=== PATIENT | female | born 1935 | race Caucasian/White ===

== ENCOUNTER 2021-11-02 10:44 | Emergency (ER) | payer BC ==
[2021-11-02 10:50] VITALS: BMI 34.7
[2021-11-02] MEDS ORDERED: SOTROVIMAB 500 MG in SODIUM CHLORIDE 100 ML IVPB ONE (12:38)
[2021-11-02 15:55] VITALS: BP 177/66; PULSE 88; TEMP 98
== END 2021-11-02 15:55 | disposition home or self-care (01) ==
LOC: JER 10:44
DX: U07.1 COVID-19 (principal)
CPT/HCPCS: 99284-25; M0247; Q0247

== ENCOUNTER 2022-07-21 04:58 | Observation (INO) | payer BC ==
[2022-07-21 05:05] VITALS: BMI 30.9
[2022-07-21 06:47] LABS: BASO % 0.7 % (0-2.0); EOS % 1.1 % (0-4.5); HEMATOCRIT 43.5 % (32.4-45.2); HEMOGLOBIN 14.2 GM/dL (10.7-15.3); LYMPH % 16.7 % (8-40); MCH 28.1 pg (25.7-33.7); MCHC 32.6 g/dl (32.0-36.0); MEAN CELL VOLUME 86.1 fl (80-96); MEAN PLT VOLUME 9.6 fl (7.5-11.1); MONO % 8.8 % (3.8-10.2); NEUT % 72.7 % (42.8-82.8); PLATELET COUNT 266 10^3/uL (134-434); RBC 5.05 M/mm3 (3.60-5.2); RDW 14.6 % (11.6-15.6); WHITE BLOOD COUNT 7.9 K/mm3 (4.0-10.0)
[2022-07-21 06:53] LABS: INR 1.26 (0.83-1.09); PROTHROMBIN TIME (PATIENT) 14.5 SEC (9.7-13.0)
[2022-07-21 06:56] LABS: ACTIVATED PTT 30.1 SECONDS (25.2-36.5)
[2022-07-21 07:08] LABS: CALCIUM 8.7 mg/dL (8.5-10.1)
[2022-07-21 07:09] LABS: ALBUMIN 3.5 g/dl (3.4-5.0); BLOOD UREA NITROGEN 36.5 mg/dL (7-18)
[2022-07-21 07:11] LABS: CREATININE 1.1 mg/dL (0.55-1.3); PHOSPHOROUS 3.9 mg/dL (2.5-4.9)
[2022-07-21 07:13] LABS: BILIRUBIN,TOTAL 0.8 mg/dL (0.2-1); TOT PROT 6.4 g/dl (6.4-8.2)
[2022-07-21] MEDS ORDERED: FUROSEMIDE 40 MG/4 ML INJECTABLE VIAL IVPUSH ONE (08:34)
[2022-07-21] MEDS ORDERED: FUROSEMIDE 40 MG/4 ML INJECTABLE VIAL ONE (09:42)
[2022-07-21] MEDS ORDERED: ENOXAPARIN NA (PORCINE) 40 MG/0.4 ML DISP.SYRIN SQ SCH (10:00)
[2022-07-21] MEDS ORDERED: PATIENT'S OWN MEDICATION (NON-FORMULARY) (Spironolact/Hydrochlorothiazid [Spironolactone-H PO SCH (10:00)
[2022-07-21] MEDS ORDERED: ALBUTEROL SO4 2.5/IPRATROPIUM 0.5 INH SOL 3 ML VIAL.NEB. NEB ONE (10:39)
[2022-07-21] MEDS ORDERED: HYDROCHLOROTHIAZIDE 25 MG TABLET (FP) PO SCH (11:00)
[2022-07-21 11:16] LABS: EPI CELLS 8 /uL (0-25.1); HYALINE CASTS 0 /uL (0-3.1); PH,URINE 5.5 (5.0-8.0); URINE APPEARANCE CLEAR; URINE BACTERIA 31 /uL (0-1359); URINE BILIRUBIN NEGATIVE (NEGATIVE); URINE COLOR YELLOW; URINE GLUCOSE (UA) NEGATIVE (NEGATIVE); URINE KETONE NEGATIVE (NEGATIVE); URINE LEUK ESTERASE NEGATIVE (NEGATIVE); URINE NITRITE NEGATIVE (NEGATIVE); URINE PROTEIN 2+ (NEGATIVE); URINE RBC 13 /uL (0-23.9); URINE UROBILINOGEN 0.2 mg/dL (0.2-1.0); URINE WBC 29 /uL (0-25.8)
[2022-07-21] MEDS ORDERED: ATORVASTATIN CA 10 MG TABLET (FP) ONE (11:48)
[2022-07-21] MEDS ORDERED: HYDROCHLOROTHIAZIDE 25 MG TABLET (FP) ONE (11:48)
[2022-07-21] MEDS ORDERED: SERTRALINE HCL 50 MG TABLET (FP) ONE (11:49)
[2022-07-21] MEDS ORDERED: SPIRONOLACTONE 25 MG TABLET ONE (11:49)
[2022-07-21] MEDS ORDERED: VALSARTAN 80 MG TABLET ONE (11:49)
[2022-07-21] MEDS: SPIRONOLACTONE 25 MG TABLET PO SCH (11:52)
[2022-07-21] MEDS: ATORVASTATIN CA 10 MG TABLET (FP) PO SCH (11:53)
[2022-07-21] MEDS: SERTRALINE HCL 50 MG TABLET (FP) PO SCH (11:54)
[2022-07-21] MEDS ORDERED: APIXABAN 5 MG TABLET ONE ×2 (11:57→23:10)
[2022-07-21] MEDS: APIXABAN 5 MG TABLET PO SCH ×2 (12:23→23:13)
[2022-07-21] MEDS: VALSARTAN 160 MG TABLET PO SCH (12:32)
[2022-07-21] MEDS: EZETIMIBE 10 MG TABLET (FP) PO SCH (12:32)
[2022-07-21] MEDS ORDERED: INSULIN (NOVOLOG) ASPART 100 UNITS/ML 10ML VIAL ONE (12:54)
[2022-07-21] MEDS: INSULIN SLIDING SCALE (NOVOLOG) 1 VIAL SQ SCH ×3 (12:58→23:17)
[2022-07-22] MEDS: INSULIN SLIDING SCALE (NOVOLOG) 1 VIAL SQ SCH ×4 (06:45→22:11)
[2022-07-22 07:30] LABS: HEMATOCRIT 42.1 % (32.4-45.2); HEMOGLOBIN 13.5 GM/dL (10.7-15.3); MCH 27.7 pg (25.7-33.7); MEAN CELL VOLUME 86.8 fl (80-96); PLATELET COUNT 221 10^3/uL (134-434); RBC 4.85 M/mm3 (3.60-5.2); RDW 14.6 % (11.6-15.6); WHITE BLOOD COUNT 7.4 K/mm3 (4.0-10.0)
[2022-07-22 07:54] LABS: CALCIUM 8.8 mg/dL (8.5-10.1)
[2022-07-22 07:55] LABS: BLOOD UREA NITROGEN 36.9 mg/dL (7-18); MAGNESIUM 1.8 mg/dL (1.8-2.4)
[2022-07-22] MEDS: LEVOTHYROXINE NA 100 MCG TABLET (FP) PO SCH (08:00)
[2022-07-22] MEDS ORDERED: POTASSIUM CHLORIDE TABS 20 MEQ TABLET.ER (FP) PO ONE (08:53)
[2022-07-22] MEDS: VALSARTAN 160 MG TABLET PO SCH (10:04)
[2022-07-22] MEDS: APIXABAN 5 MG TABLET PO SCH ×2 (10:04→22:06)
[2022-07-22] MEDS: EZETIMIBE 10 MG TABLET (FP) PO SCH (10:04)
[2022-07-22] MEDS: ATORVASTATIN CA 10 MG TABLET (FP) PO SCH (10:04)
[2022-07-22] MEDS: SPIRONOLACTONE 25 MG TABLET PO SCH (10:05)
[2022-07-22] MEDS: FUROSEMIDE 40 MG/4 ML INJECTABLE VIAL IVPUSH SCH (10:05)
[2022-07-22] MEDS: SERTRALINE HCL 50 MG TABLET (FP) PO SCH (10:05)
[2022-07-23] MEDS: LEVOTHYROXINE NA 100 MCG TABLET (FP) PO SCH (06:57)
[2022-07-23] MEDS: INSULIN SLIDING SCALE (NOVOLOG) 1 VIAL SQ SCH ×2 (06:57→12:09)
[2022-07-23 08:04] LABS: HEMATOCRIT 43.2 % (32.4-45.2); HEMOGLOBIN 13.8 GM/dL (10.7-15.3); MCH 27.7 pg (25.7-33.7); MCHC 31.9 g/dl (32.0-36.0); MEAN CELL VOLUME 86.9 fl (80-96); PLATELET COUNT 212 10^3/uL (134-434); RBC 4.97 M/mm3 (3.60-5.2); RDW 14.3 % (11.6-15.6)
[2022-07-23 08:26] LABS: CALCIUM 8.7 mg/dL (8.5-10.1)
[2022-07-23 08:27] LABS: ALBUMIN 3.4 g/dl (3.4-5.0)
[2022-07-23 08:30] LABS: BLOOD UREA NITROGEN 36.2 mg/dL (7-18); PHOSPHOROUS 4.4 mg/dL (2.5-4.9)
[2022-07-23] MEDS ORDERED: POTASSIUM CHLORIDE TABS 20 MEQ TABLET.ER (FP) PO ONE (08:30)
[2022-07-23 08:31] LABS: BILIRUBIN,TOTAL 0.6 mg/dL (0.2-1); TOT PROT 5.6 g/dl (6.4-8.2)
[2022-07-23 10:14] VITALS: BP 130/76; PULSE 92; RESP 18; TEMP 97.4
[2022-07-23] MEDS: APIXABAN 5 MG TABLET PO SCH (10:15)
[2022-07-23] MEDS: EZETIMIBE 10 MG TABLET (FP) PO SCH (10:15)
[2022-07-23] MEDS: VALSARTAN 160 MG TABLET PO SCH (10:15)
[2022-07-23] MEDS: SPIRONOLACTONE 25 MG TABLET PO SCH (10:15)
[2022-07-23] MEDS: FUROSEMIDE 40 MG/4 ML INJECTABLE VIAL IVPUSH SCH (10:15)
[2022-07-23] MEDS: SERTRALINE HCL 50 MG TABLET (FP) PO SCH (10:16)
[2022-07-23] MEDS: ATORVASTATIN CA 10 MG TABLET (FP) PO SCH (10:17)
== END 2022-07-23 14:01 | disposition home or self-care (01) ==
LOC: JER 04:58 → JERBED 09:34 → INTOOBSV 09:34 → UNDOADMOB 09:34 → JERBED 09:36 → J4W 23:38
PROVIDERS: ADMIT Internal Medicine; ATTEND Internal Medicine
PROC: 3E033GC Introduction of Other Therapeutic Substance into Peripheral Vein, Percutaneous Approach (ICD-10-PCS; principal; 2022-07-21)
DX: J96.01 Acute respiratory failure with hypoxia (principal); I11.0 Hypertensive heart disease with heart failure; I50.9 Heart failure, unspecified; I48.0 Paroxysmal atrial fibrillation; I50.30 Unspecified diastolic (congestive) heart failure; E11.9 Type 2 diabetes mellitus without complications; R10.13 Epigastric pain; E78.5 Hyperlipidemia, unspecified
CPT/HCPCS: 0241U-QW; 36415; 71045-TC-FY; 80048; 80053; 81003; 82962; 83690; 83735; 83880; 84100; 84484; 85025; 85027; 85610; 85730; 87086; 93005; 93010; 96374; 96375; 99285-25; G0378

== ENCOUNTER 2022-08-29 12:50 | Inpatient (IN) | payer BC ==
[2022-08-29 14:58] LABS: HEMATOCRIT 45.3 % (32.4-45.2); HEMOGLOBIN 14.9 GM/dL (10.7-15.3); MCH 28.8 pg (25.7-33.7); MCHC 32.9 g/dl (32.0-36.0); MEAN CELL VOLUME 87.5 fl (80-96); MEAN PLT VOLUME 9.4 fl (7.5-11.1); PLATELET COUNT 225 10^3/uL (134-434); RBC 5.18 M/mm3 (3.60-5.2); RDW 15.7 % (11.6-15.6); WHITE BLOOD COUNT 6.4 K/mm3 (4.0-10.0)
[2022-08-29] MEDS ORDERED: FUROSEMIDE 100 MG/10 ML INJECTABLE VIAL IVPB ONE (15:04)
[2022-08-29] MEDS ORDERED: FUROSEMIDE 40 MG/4 ML INJECTABLE VIAL ONE (15:12)
[2022-08-29 15:25] LABS: CALCIUM 9.2 mg/dL (8.5-10.1)
[2022-08-29 15:26] LABS: ALBUMIN 3.6 g/dl (3.4-5.0); BLOOD UREA NITROGEN 40.2 mg/dL (7-18)
[2022-08-29 15:29] LABS: CREATININE 1.5 mg/dL (0.55-1.3)
[2022-08-29 15:31] LABS: BILIRUBIN,TOTAL 0.5 mg/dL (0.2-1); TOT PROT 6.1 g/dl (6.4-8.2)
[2022-08-29] MEDS ORDERED: APIXABAN 5 MG TABLET PO SCH (16:45)
[2022-08-29] MEDS ORDERED: ATORVASTATIN CA 10 MG TABLET (FP) ONE (22:08)
[2022-08-29] MEDS: ATORVASTATIN CA 10 MG TABLET (FP) PO SCH (22:33)
[2022-08-30] MEDS ORDERED: APIXABAN 2.5 MG TABLET ONE ×2 (01:21→10:34)
[2022-08-30] MEDS: APIXABAN 2.5 MG TABLET PO SCH ×3 (01:22→22:41)
[2022-08-30] MEDS ORDERED: LEVOTHYROXINE NA 50 MCG TABLET (FP) ONE (06:19)
[2022-08-30] MEDS: LEVOTHYROXINE NA 100 MCG TABLET (FP) PO SCH (07:02)
[2022-08-30 07:30] LABS: BASO % 0.8 % (0-2.0); EOS % 1.6 % (0-4.5); HEMATOCRIT 47.1 % (32.4-45.2); HEMOGLOBIN 15.2 GM/dL (10.7-15.3); LYMPH % 23.7 % (8-40); MCH 28.4 pg (25.7-33.7); MCHC 32.4 g/dl (32.0-36.0); MEAN CELL VOLUME 87.6 fl (80-96); MEAN PLT VOLUME 9.3 fl (7.5-11.1); MONO % 11.6 % (3.8-10.2); NEUT % 62.3 % (42.8-82.8); PLATELET COUNT 203 10^3/uL (134-434); RBC 5.38 M/mm3 (3.60-5.2); RDW 15.5 % (11.6-15.6); WHITE BLOOD COUNT 6.9 K/mm3 (4.0-10.0)
[2022-08-30 07:56] LABS: ALBUMIN 3.6 g/dl (3.4-5.0); BLOOD UREA NITROGEN 36.3 mg/dL (7-18); CALCIUM 8.5 mg/dL (8.5-10.1)
[2022-08-30 07:58] LABS: CREATININE 1.3 mg/dL (0.55-1.3)
[2022-08-30 08:00] LABS: BILIRUBIN,TOTAL 0.6 mg/dL (0.2-1); TOT PROT 5.9 g/dl (6.4-8.2)
[2022-08-30] MEDS ORDERED: FUROSEMIDE 40 MG/4 ML INJECTABLE VIAL IVPUSH ONE (08:02)
[2022-08-30] MEDS ORDERED: FUROSEMIDE 40 MG/4 ML INJECTABLE VIAL ONE ×2 (08:11→14:58)
[2022-08-30] MEDS ORDERED: NIFEdipine E.R. 90 MG TABLET PO SCH ×2 (10:00→22:00)
[2022-08-30] MEDS ORDERED: FUROSEMIDE 40 MG/4 ML INJECTABLE VIAL IVPUSH SCH ×2 (10:00→14:00)
[2022-08-30] MEDS: EZETIMIBE 10 MG TABLET (FP) PO SCH (10:30)
[2022-08-30] MEDS: VALSARTAN 160 MG TABLET PO SCH (10:30)
[2022-08-30 18:05] VITALS: BMI 34.9
[2022-08-30] MEDS ORDERED: DEXTROSE 50%-WATER - 25 GM/50 ML VIAL IVPUSH PRN (18:40)
[2022-08-30] MEDS: ATORVASTATIN CA 10 MG TABLET (FP) PO SCH (22:41)
[2022-08-30] MEDS: INSULIN SLIDING SCALE (NOVOLOG) 1 VIAL SQ SCH (22:44)
[2022-08-31] MEDS: INSULIN SLIDING SCALE (NOVOLOG) 1 VIAL SQ SCH ×4 (06:00→21:11)
[2022-08-31] MEDS: LEVOTHYROXINE NA 100 MCG TABLET (FP) PO SCH (06:00)
[2022-08-31 07:54] LABS: BASO % 0.7 % (0-2.0); EOS % 2.1 % (0-4.5); HEMATOCRIT 44.8 % (32.4-45.2); HEMOGLOBIN 14.9 GM/dL (10.7-15.3); LYMPH % 20.1 % (8-40); MCH 28.9 pg (25.7-33.7); MCHC 33.3 g/dl (32.0-36.0); MEAN CELL VOLUME 86.9 fl (80-96); MEAN PLT VOLUME 8.7 fl (7.5-11.1); MONO % 10.5 % (3.8-10.2); NEUT % 66.6 % (42.8-82.8); PLATELET COUNT 196 10^3/uL (134-434); RBC 5.16 M/mm3 (3.60-5.2); WHITE BLOOD COUNT 6.1 K/mm3 (4.0-10.0)
[2022-08-31 08:17] LABS: CALCIUM 8.5 mg/dL (8.5-10.1)
[2022-08-31 08:18] LABS: ALBUMIN 3.6 g/dl (3.4-5.0); BLOOD UREA NITROGEN 31.5 mg/dL (7-18); MAGNESIUM 2.1 mg/dL (1.8-2.4)
[2022-08-31 08:21] LABS: CREATININE 1.2 mg/dL (0.55-1.3); PHOSPHOROUS 3.9 mg/dL (2.5-4.9)
[2022-08-31 08:22] LABS: BILIRUBIN,TOTAL 0.7 mg/dL (0.2-1)
[2022-08-31 08:23] LABS: TOT PROT 5.7 g/dl (6.4-8.2)
[2022-08-31] MEDS ORDERED: POTASSIUM CHLORIDE TABS 20 MEQ TABLET.ER (FP) PO ONE (09:00)
[2022-08-31] MEDS: APIXABAN 2.5 MG TABLET PO SCH ×2 (09:57→21:04)
[2022-08-31] MEDS: EZETIMIBE 10 MG TABLET (FP) PO SCH (09:58)
[2022-08-31] MEDS: VALSARTAN 160 MG TABLET PO SCH (09:58)
[2022-08-31] MEDS ORDERED: metoPROLOL SUCCINATE 25 MG TAB.SR.24H (FP) PO ONE (13:00)
[2022-08-31] MEDS ORDERED: FUROSEMIDE 40 MG/4 ML INJECTABLE VIAL IVPUSH ONE (14:00)
[2022-08-31] MEDS: SPIRONOLACTONE 25 MG TABLET PO SCH (14:20)
[2022-08-31] MEDS: ATORVASTATIN CA 10 MG TABLET (FP) PO SCH (21:04)
[2022-09-01] MEDS: INSULIN SLIDING SCALE (NOVOLOG) 1 VIAL SQ SCH ×4 (06:16→22:17)
[2022-09-01] MEDS: LEVOTHYROXINE NA 100 MCG TABLET (FP) PO SCH (06:16)
[2022-09-01 09:07] LABS: BASO % 0.4 % (0-2.0); EOS % 1.8 % (0-4.5); HEMOGLOBIN 14.6 GM/dL (10.7-15.3); LYMPH % 16.2 % (8-40); MCH 29.3 pg (25.7-33.7); MCHC 33.8 g/dl (32.0-36.0); MEAN CELL VOLUME 86.6 fl (80-96); MEAN PLT VOLUME 8.8 fl (7.5-11.1); MONO % 10.9 % (3.8-10.2); NEUT % 70.7 % (42.8-82.8); PLATELET COUNT 195 10^3/uL (134-434); RBC 4.97 M/mm3 (3.60-5.2); RDW 15.2 % (11.6-15.6); WHITE BLOOD COUNT 6.7 K/mm3 (4.0-10.0)
[2022-09-01 09:18] LABS: ALBUMIN 3.4 g/dl (3.4-5.0); BLOOD UREA NITROGEN 27.9 mg/dL (7-18); MAGNESIUM 2.1 mg/dL (1.8-2.4)
[2022-09-01 09:21] LABS: PHOSPHOROUS 3.7 mg/dL (2.5-4.9)
[2022-09-01 09:23] LABS: BILIRUBIN,TOTAL 0.8 mg/dL (0.2-1); TOT PROT 5.5 g/dl (6.4-8.2)
[2022-09-01 09:25] LABS: CREATININE 1.1 mg/dL (0.55-1.3)
[2022-09-01] MEDS: VALSARTAN 160 MG TABLET PO SCH (10:50)
[2022-09-01] MEDS: APIXABAN 2.5 MG TABLET PO SCH (10:51)
[2022-09-01] MEDS: FUROSEMIDE 40 MG TABLET (FP) PO SCH (10:51)
[2022-09-01] MEDS: SPIRONOLACTONE 25 MG TABLET PO SCH (10:51)
[2022-09-01] MEDS: EZETIMIBE 10 MG TABLET (FP) PO SCH (10:51)
[2022-09-01] MEDS: APIXABAN 5 MG TABLET PO SCH (22:11)
[2022-09-01] MEDS: ATORVASTATIN CA 10 MG TABLET (FP) PO SCH (22:11)
[2022-09-02] MEDS: LEVOTHYROXINE NA 100 MCG TABLET (FP) PO SCH (06:16)
[2022-09-02] MEDS: INSULIN SLIDING SCALE (NOVOLOG) 1 VIAL SQ SCH ×4 (06:20→21:52)
[2022-09-02] MEDS: VALSARTAN 160 MG TABLET PO SCH (09:11)
[2022-09-02] MEDS: FUROSEMIDE 40 MG TABLET (FP) PO SCH (09:11)
[2022-09-02] MEDS: APIXABAN 5 MG TABLET PO SCH ×2 (09:12→21:50)
[2022-09-02] MEDS: SPIRONOLACTONE 25 MG TABLET PO SCH (09:12)
[2022-09-02] MEDS: EZETIMIBE 10 MG TABLET (FP) PO SCH (09:12)
[2022-09-02] MEDS: ATORVASTATIN CA 10 MG TABLET (FP) PO SCH (21:50)
[2022-09-03] MEDS: LEVOTHYROXINE NA 100 MCG TABLET (FP) PO SCH (06:08)
[2022-09-03] MEDS: INSULIN SLIDING SCALE (NOVOLOG) 1 VIAL SQ SCH (06:12)
[2022-09-03 07:51] LABS: BASO % 0.6 % (0-2.0); HEMATOCRIT 44.4 % (32.4-45.2); HEMOGLOBIN 14.2 GM/dL (10.7-15.3); LYMPH % 18.3 % (8-40); MCH 28.1 pg (25.7-33.7); MCHC 32.1 g/dl (32.0-36.0); MEAN CELL VOLUME 87.7 fl (80-96); MEAN PLT VOLUME 9.4 fl (7.5-11.1); MONO % 10.9 % (3.8-10.2); NEUT % 68.2 % (42.8-82.8); PLATELET COUNT 199 10^3/uL (134-434); RBC 5.07 M/mm3 (3.60-5.2); RDW 15.3 % (11.6-15.6); WHITE BLOOD COUNT 5.9 K/mm3 (4.0-10.0)
[2022-09-03 09:12] LABS: CALCIUM 8.7 mg/dL (8.5-10.1)
[2022-09-03 09:17] LABS: BILIRUBIN,TOTAL 0.8 mg/dL (0.2-1); TOT PROT 5.2 g/dl (6.4-8.2)
[2022-09-03 09:57] VITALS: BP 123/100; PULSE 80; RESP 18; TEMP 97.8
[2022-09-03] MEDS: VALSARTAN 160 MG TABLET PO SCH (10:01)
[2022-09-03] MEDS: APIXABAN 5 MG TABLET PO SCH (10:01)
[2022-09-03] MEDS: FUROSEMIDE 40 MG TABLET (FP) PO SCH (10:02)
[2022-09-03] MEDS: SPIRONOLACTONE 25 MG TABLET PO SCH (10:02)
[2022-09-03] MEDS: EZETIMIBE 10 MG TABLET (FP) PO SCH (10:02)
== END 2022-09-03 10:51 | disposition home or self-care (01) | DRG 291 ==
LOC: JER 12:50 → JERBED 16:21 → J4S 08-30 17:36
PROVIDERS: ADMIT Internal Medicine; ATTEND Internal Medicine
DX: I11.0 Hypertensive heart disease with heart failure (principal); I50.33 Acute on chronic diastolic (congestive) heart failure; J98.11 Atelectasis; I48.91 Unspecified atrial fibrillation; I25.10 Atherosclerotic heart disease of native coronary artery without angina pectoris; E03.9 Hypothyroidism, unspecified; E11.9 Type 2 diabetes mellitus without complications; E66.9 Obesity, unspecified; F32.A Depression, unspecified; Z68.34 Body mass index [BMI] 34.0-34.9, adult; I27.20 Pulmonary hypertension, unspecified
CPT/HCPCS: 0241U-QW; 36415; 71045-TC-FY; 80053; 80061; 82962; 83735; 83880; 84100; 84443; 84484; 85025; 85027; 93005; 93010; 93306-TC; 94761; 97116-GP; 97161-GP; 99285-25